=== PATIENT | female | born 1995 | race African-American/Black ===

== ENCOUNTER 2018-08-27 16:00 | Emergency (ER) | payer OTHER ==
[~2018-08-27] VITALS: Ht 170.2 cm; Wt 74.8 kg
--- NOTE | 2018-08-27 16:23 | Emergency Room Report ---
History of Present Illness General Chief Complaint: Female Urogenital Problems Source: Patient Present Illness HPI 23-year-old female patient presents the ER complaining of "bump on left vaginal lip" times 1 day. Reports appeared yesterday has grown in size and pain. Reports concern for Bartholin cyst. Also complaining of vaginal discharge, states it is white clear in color, reports foul-smelling odor. Denies dysuria, hematuria. Reports last sexual encounter over month ago, states she is protection at that time. Denies abdominal pain or flank pain. Denies fever, chest pain, shortness of breath, abdominal pain, vomiting. Allergies: Coded Allergies: No Known Allergies (Unverified , 08/27/18) Patient History Past Medical History: see triage record Last Menstrual Period: last week Now: No Reviewed Nursing Documentation: PMH: Agreed; PSxH: Agreed Nursing Documentation-PMH Past Medical History: No History, Except For Review of Systems All Other Systems: negative except mentioned in HPI Physical Exam Vital Signs Date Time Temp Pulse Resp B/P (MAP) Pulse Ox O2 Delivery O2 Flow Rate FiO2 08/27/18 16:02 99.7 100 22 119/74 97 Room Air Sp02 EP Interpretation: reviewed, normal General Appearance: well appearing, no apparent distress, alert, GCS 15, non- toxic Head: normocephalic, atraumatic Eyes: bilateral eye normal inspection, bilateral eye PERRL ENT: hearing grossly normal, normal pharynx, no angioedema, normal voice, uvula midline, moist mucus membranes Neck: full range of motion Respiratory: lungs clear, normal breath sounds, no rhonchi, no respiratory distress, no accessory muscle use, no wheezing, speaking full sentences Cardiovascular #1: regular rate, rhythm, no edema Gastrointestinal: non tender, soft, no mass, non-distended, no guarding, no rebound Genitourinary: no CVA tenderness, other - Mild erythema and edema of the left labial fold, no Bartholin cyst, no palpable mass, no drainage, no fluctuance or induration Musculoskeletal: back normal, digits/nails normal, gait/station normal, normal range of motion, non-tender Neurologic: alert, oriented x3, responsive, motor strength/tone normal, sensory intact Psychiatric: mood/affect normal Skin: no rash Lymphatic: no adenopathy Medical Decision Making PA Attestation Dr. Parikh is my supervising Physician whom patient management has been discussed with. Diagnostic Impression: Primary Impression: Cellulitis Additional Impression: Bacterial vaginosis ER Course Pt. presents to the ED c/o left vaginal fold pain and swelling. Ddx considered but are not limited to gonorrhea, chalmydia, cystitis, pylonephritis, bacterial vaginosis, yeast infection, Cellulitis, Bartholin cyst , abscess. Vital signs: are WNL, pt. is afebrile Ordered UA and abx. ER COURSE: Clinical history consistent with bacterial vaginosis infection, will treat patient with metronidazole, instruct patient not to drink alcohol while taking medication. Physical exam performed with female nurse nuclear reactor technician present. Physical exam left labial lip shows mild swelling and erythema, no palpable cyst or abscess noted, likely cellulitis infection, low suspicion for Bartholin cyst at this time, does not require I&D at this time, no palpable mass to I&D. Will discharge patient home with antibiotics to cover for cellulitis, instructed to follow-up in 2-3 days. Instructed patient to followup in the ER or with [facility] in 2-3 days for repeat examination. UA results shows no signs of infection Urine negative Provided patient with Rocephin and Azithromycin in the ER. Informed patient medications will cover for gonorrhea and chlamydia, needs further follow-up evaluation and possible treatment of other sexual transmitted infections. Advised to use safe sex practices including but not limited to use of condoms. Avoid sexual activity for the next 2 weeks. Instructed patient to follow up with STI clinic and/or PCP for STI evaluation and further treatment as necessary. Instructed patient to inform partners of needs for evaluation and treatment of possible infections. ER precautions given. DISCHARGE: Patient is resting comfortably, in no acute distress, nontoxic appearing, talking without difficulty. Patient to take medications as instructed Will provide with patient care instructions and any necessary prescriptions. Care plan and follow-up instructions provided. Patient instructed to follow-up with primary care provider in 3 - 5 days. Patient questions asked and answered. Patient reports understanding and agreement to treatment plan. ER precautions given. Patient instructed to return to ER immediately for any new or worsening of symptoms including but not limited to increasing SOB, persistent fever. - Please note that this Emergency Department Report was dictated using [employer] index technology software, occasionally this can lead to erroneous entry secondary to interpretation by the dictation equipment. Labs Test 08/27/18 16:27 Urine Color Pale yellow Urine Appearance Clear Urine pH 7 (4.5-8.0) Urine Specific [place] 1.010 (1.005-1.035) Urine Protein Negative (NEGATIVE) Urine Glucose (UA) Negative (NEGATIVE) Urine Ketones Negative (NEGATIVE) Urine Blood Negative (NEGATIVE) Urine Nitrite Negative (NEGATIVE) Urine Bilirubin Negative (NEGATIVE) Urine Urobilinogen Normal MG/DL (0.0-1.0) Urine Leukocyte Esterase 1+ (NEGATIVE) Urine RBC 0-2 /HPF (0 - 2) Urine WBC 2-4 /HPF (0 - 2) Urine Squamous Epithelial Cells Few /LPF (NONE/OCC) Urine Bacteria Few /HPF (NONE) Urine HCG, Qualitative Negative (NEGATIVE) Last Vital Signs Date Time Temp Pulse Resp B/P (MAP) Pulse Ox O2 Delivery O2 Flow Rate FiO2 08/27/18 16:02 99.7 100 22 119/74 97 Room Air Status: improved Disposition: HOME, SELF-CARE Condition: Stable Scripts Cephalexin* (KEFLEX*) 500 Mg Capsule 500 MG ORAL EVERY 12 HOURS, #14 CAP 0 Refills Prov: Xander Cardona 08/27/18 Metronidazole* (FLAGYL*) 500 Mg Tablet 500 MG ORAL BID, #14 TAB Prov: Xander Cardona 08/27/18 Patient Instructions: Bacterial Vaginosis, [id number], Bartholin Cyst or Abscess, [id number], Cellulitis, [id number], Sexually Transmitted Disease, [id number] Additional Instructions: Follow-up in 2-3 days with primary care provider or in the ER for repeat examination to monitor cellulitis infection and rule out Bartholin cyst. Followup with primary care provider and/or followup with STI clinic for further evaluation and treatment. Alert sexual partners for need for evaluation and treatment. Wear condoms during sex. Avoid sexual activity for 2 weeks. Drink plenty of fluids. Patient questions asked and answered. ER precautions given, patient instructed to return to ER immediately for any new or worsening of symptoms. Xander Cardona Aug 27, 2018 16:23
[2018-08-27] MEDS ORDERED: Lidocaine 1% MPF 10mg/ml 5ml INJ ONE (16:30)
[2018-08-27] MEDS ORDERED: Azithromycin 250mg tab ORAL ONE (16:30)
[2018-08-27 16:38] LABS: APPEARANCE,URINE CLEAR; BILIRUBIN, URINE NEGATIVE (NEGATIVE); COLOR,URINE PALE YELLOW; GLUCOSE, URINE (UA) NEGATIVE (NEGATIVE); KETONES,URINE NEGATIVE (NEGATIVE); LEUKOCYTE ESTERASE ,URINE 1+ (NEGATIVE); NITRITE,URINE NEGATIVE (NEGATIVE); PH,URINE 7 (4.5-8.0); PROTEIN,URINE NEGATIVE (NEGATIVE); UROBILINOGEN,URINE NORMAL MG/DL (0.0-1.0)
[2018-08-27 16:54] VITALS: BP 119/74
[2018-08-27] MEDS ORDERED: CEPHALEXIN500 MG ORAL (17:00)
[2018-08-27] MEDS ORDERED: METRONIDAZOLE500 MG ORAL (17:00)
[2018-08-27 17:21] VITALS: BP 119/74
== END 2018-08-27 17:05 | disposition home or self-care (01) ==
LOC: EMR 16:20
DX: L03.818 Cellulitis of other sites (principal); N76.0 Acute vaginitis; B96.89 Other specified bacterial agents as the cause of diseases classified elsewhere
CPT/HCPCS: 81003; 81025; 96372; 96374; 99284; J0696; Q0144

== ENCOUNTER 2018-12-01 11:49 | Emergency (ER) | payer OTHER ==
[~2018-12-01] VITALS: Ht 170.2 cm; Wt 72.6 kg
[~2018-12-01 11:49] MED LIST: CEPHALEXIN500 MG ORAL; METRONIDAZOLE500 MG ORAL
--- NOTE | 2018-12-01 12:00 | NUR ---
ED Nurse Note: Patient presents to rash (multiple raised area with redness) around bilateral ankle with itching x 1 day; Reports no breathing problem. Patient returned from [place], wearing ankle boots. Reports no use of drug or alcohol. Patient attempted to relieve symtoms with Hydrocorstione cream at home.
[2018-12-01 12:02] VITALS: BP 113/62
[2018-12-01] MEDS ORDERED: LUTERA ORAL (12:05)
[2018-12-01] MEDS ORDERED: ZYRTEC10 MG ORAL (12:08)
[2018-12-01] MEDS ORDERED: KENALOG 0.025%15 GM APPLIC (12:08)
--- NOTE | 2018-12-01 12:09 | Emergency Room Report ---
History of Present Illness General Chief Complaint: Rash Present Illness HPI 23-year-old female presents with bilateral ankle rash and itchiness for 2 days. States that she was recently at [place] prior to the onset of symptoms and woke up one morning with this rash. Denies staying outdoors outside of being at [employer] denies sleeping outside. Is not using any new lotions or detergents. Tried her mother's 2.5% hydrocortisone cream which had some improvement but woke the next morning with the rash being worse. Denies any pain, discharge, drainage, swelling, shortness of breath, angioedema Allergies: Coded Allergies: No Known Allergies (Unverified , 08/27/18) Patient History Past Medical History: see triage record Past Surgical History: none Pertinent Family History: none Now: No Reviewed Nursing Documentation: PMH: Agreed; PSxH: Agreed Review of Systems All Other Systems: negative except mentioned in HPI Physical Exam Vital Signs Date Time Temp Pulse Resp B/P (MAP) Pulse Ox O2 Delivery O2 Flow Rate FiO2 12/01/18 12:02 99.0 18 113/62 97 Room Air 12/01/18 12:02 102 Sp02 EP Interpretation: reviewed, normal General Appearance: no apparent distress, alert, GCS 15, non-toxic Head: normocephalic, atraumatic Eyes: bilateral eye normal inspection, bilateral eye PERRL ENT: hearing grossly normal, normal pharynx, no angioedema, normal voice Neck: full range of motion, supple/symm/no masses Respiratory: chest non-tender, lungs clear, normal breath sounds, speaking full sentences Cardiovascular #1: regular rate, rhythm, no edema Musculoskeletal: gait/station normal, normal range of motion, non-tender, no calf tenderness Skin: normal color, warm/dry, well hydrated, rash - papular erythematous rash bilateral ankles. No induration, swelling, or tenderness Medical Decision Making PA Attestation Dr. Yu is my supervising physician with whom patient management has been discussed with. Diagnostic Impression: Primary Impression: Dermatitis ER Course 23-year-old female with rash to her distal lower extremities/ankles for 2 days. She has no signs of anaphylaxis and there is no induration or tenderness. This does not look like vasculitis as there is no purpura or petechiae noted. The patient notes intermittent improvement with topical steroids. At this time the patient appears stable for discharge home without any emergent exam findings. Will provide printed patient care instructions, and any necessary prescriptions. Care plan and follow up instructions have been discussed with the patient prior to discharge. Last Vital Signs Date Time Temp Pulse Resp B/P (MAP) Pulse Ox O2 Delivery O2 Flow Rate FiO2 12/01/18 12:23 100 16 99 12/01/18 12:02 99.0 113/62 Room Air Status: unchanged Disposition: HOME, SELF-CARE Condition: Stable Scripts Cetirizine Hcl* (ZYRTEC*) 10 Mg Tablet 10 MG ORAL DAILY, #14 TAB 0 Refills Prov: Yohana Galdamez 12/01/18 Triamcinolone Acet (Triamcinolone Acetonide) 15 Gm Cream..g. 0.5 % APPLIC BID for 14 Days, #30 GM Prov: Yohana Galdamez 12/01/18 Patient Instructions: Contact Dermatitis Additional Instructions: Take medications as directed. Follow up with PCP within 5-7 days. Advised patient to avoid using or touching whatever might have caused their rash. Patient is to protect their skin from anything that might irritate it or cause an allergy (ie wearing gloves if they need to work with harsh soaps). Advised patient to try using soothing skin products to help with the itching and discomfort which include: unscented, thick moisturizing cream, anti-itch lotion or cream, and a special kind of bath called an oatmeal bath. Advised patient to go to the ER if they experience severe symptoms like pain, widespread swelling, and large blisters, oozing, or crusting of the skin. Patient is to return sooner if their rash does not go away within 3-5 days or if it gets worse. Yohana Galdamez Dec 01, 2018 12:09
--- NOTE | 2018-12-01 12:24 | NUR ---
ED Nurse Note: Patient is being discharged from medical care. D/C instruction and prescriptions given to patient. All questions were answered. Patient ambulated out with steady gait.
== END 2018-12-01 12:21 | disposition home or self-care (01) ==
LOC: EMR 12:10
DX: L30.9 Dermatitis, unspecified (principal)
CPT/HCPCS: 99282